=== PATIENT | male | born 1960 | race Asian ===

== ENCOUNTER 2017-02-26 23:24 | Emergency (ER) | payer SELFPAY ==
[~2017-02-26] VITALS: Ht 167.6 cm; Wt 78.9 kg
[2017-02-26 23:30] VITALS: BP 159/99
[2017-02-27] MEDS ORDERED: ENALAPRILAT 2.5 MG/2 ML VIAL IVP ONE (01:00)
--- NOTE | 2017-02-27 01:00 | NUR ---
PATIENT TO ER BED 6.
--- NOTE | 2017-02-27 01:01 | NUR ---
56 Y/O M W/C/O HIGH BLOOD PRESURE, SHAKINESS AND ANXIETY X TODAY. PT DENIES ANY CHEST PAIN OR SOB AT THE MOMENT.MED HX HTN. PT DENIES ANY N/V/D AT THE MOMENT. PT AAOX 4
--- NOTE | 2017-02-27 01:15 | NUR ---
PATIENT BEING EVALUATED BY DR. SWANN.
--- NOTE | 2017-02-27 02:40 | NUR ---
IV removed, catheter intact and site benign. Applied folded 4x4 gauze and tape to stop bleeding.
--- NOTE | 2017-02-27 02:40 | NUR ---
Patient discharged with v/s stable BY ER MD DR SWANN. Written and verbal after care instructions given and explained BY ER MD DR SWANN. Patient verbalized understanding. Ambulatory with steady gait. All questions addressed prior to discharge. Advised to follow up with PMD BY ER MD DR SWANN.
[2017-02-27 02:41] VITALS: BP 133/91
== END 2017-02-27 02:42 | disposition home or self-care (01) ==
LOC: MED 23:24
DX: I10 Essential (primary) hypertension (principal); F41.9 Anxiety disorder, unspecified; R94.31 Abnormal electrocardiogram [ECG] [EKG]
CPT/HCPCS: 93005; 96374; 99284; J3490